=== PATIENT | female | born 1980 | race African-American/Black ===

== ENCOUNTER 2022-07-08 10:25 | Emergency (ER) | payer MEDICAID ==
[~2022-07-08] VITALS: Ht 160 cm; Wt 118.0 kg
[2022-07-08 11:00] VITALS: BP 149/78
[2022-07-08] MEDS ORDERED: ACETAMINOPHEN 325MG TABLET PO PRN (15:15)
[2022-07-08 15:37] LABS: BASOPHILS % 0.4 % (0.0-2.0); HEMATOCRIT. 38.4 % (36.0-48.0); HEMOGLOBIN. 12.9 g/dL (12.0-16.0); LYMPHOCYTES % 22.6 % (20.0-50.0); MEAN CORPUSCULAR HEMOGLOBIN 29.5 pg (28.0-32.0); MEAN CORPUSCULAR VOLUME 88.1 fL (81.0-99.0); MEAN PLATELET VOLUME 8.6 fl (7.4-10.4); MONOCYTES % 4.8 % (2.0-8.0); NEUTROPHILS % 70.2 % (40.0-76.0); PLATELET 285 x1000/uL (130-400); RED BLOOD CELL COUNT 4.36 mill/uL (4.2-5.4); RED CELL DISTRIBUTION WIDTH 14.4 % (11.6-14.6)
[2022-07-08 15:45] LABS: CHLORIDE 102 mEq/L (98-107)
[2022-07-08 15:57] LABS: HCG SCREEN NEGATIVE
[2022-07-08 15:58] LABS: B-HCG QUANTITATIVE < 1 mIU/mL (<3)
[2022-07-08] MEDS ORDERED: IBUP-2028 MT (17:16)
[2022-07-08] MEDS ORDERED: FERR324T4 MT (17:50)
== END 2022-07-08 18:32 | disposition home or self-care (01) ==
LOC: ER 10:25
DX: N93.8 Other specified abnormal uterine and vaginal bleeding (principal); I10 Essential (primary) hypertension; Z98.890 Other specified postprocedural states
CPT/HCPCS: 36415; 76830; 76856; 80053; 81025; 84702; 84703; 85025; 86850; 86900; 99284